=== PATIENT | male | born 1990 | race Caucasian/White ===

== ENCOUNTER 2022-03-23 10:00 | Outpatient (CLI) | payer BC, SELFPAY ==
--- NOTE | ~2022-03-23 | XR_ITS ---
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 Weight bearing anteroposterior, mortise, additional oblique and lateral view of the left ankle wer e obtained. 2.. Bearing dorsal plantar, two oblique and lateral views of the left foot were obtained. COMPARISON: None. FINDINGS: Amputated versus developmentally absent distal phalanx of the left third toe. Correlate with clinical history. Alignment of the left foot and ankle is normal. No fracture. Bone island at the posterior c alcaneus. Mild osteoarthritis at a few of the interphalangeal joints. Remaining joint spaces are rela tively preserved. No ankle joint effusion. The soft tissues are unremarkable. IMPRESSION: 1. Mild osteoarthritis at a few of the interphalangeal joints. Reviewed, dictated and finalized at location A. IMPRESSION: 1. Mild osteoarthritis at a few of the interphalangeal joints.
== END 2022-03-23 10:01 | disposition home or self-care (01) ==
PROVIDERS: Visit Provider Podiatrist Foot & Ankle Surgery
DX: M19.072 Primary osteoarthritis, left ankle and foot (principal)
CPT/HCPCS: 73610; 73630

== ENCOUNTER → 2023-06-05 07:32 | Outpatient (CLI) | payer BC, SELFPAY ==
--- NOTE | ~2023-06-05 | MR_ITS ---
EXAMINATION: MR ankle LT wo con DATE: 06/05/2023 08:24 INDICATION: Posterior tibial tendon dysfunction with left ankle tightness TECHNIQUE: Magnetic resonance imaging (MRI) of the left ankle was performed without intravenous contr ast. Sequences included sagittal, coronal, and axial proton-density weighted fast spin echo without a nd with fat saturation. COMPARISON: None. FINDINGS: Medial ankle ligaments: Deep and superficial deltoid ligaments as well as the spring ligament are normal. Lateral ankle ligaments: The anterior and posterior inferior tibiofibular ligaments are normal. The calcaneofibular and dining room captain ior talofibular ligaments are normal. Mild thickening and mild increased signal along the anterior ta lofibular ligament without significant surrounding edema consistent with mild scarring related to chr onic sprain. Tendons: Achilles tendon is normal. Small amount of increased fluid signal in the peroneal tendon sheath and i n the tibialis posterior tendon sheath consistent with mild tenosynovitis. The peroneus longus and br daniella tendons are normal. The tibialis posterior, flexor digitorum longus and flexor hallucis longus t endons are normal. The tibialis anterior and extensor hallucis longus and extensor digitorum longus t endons are normal. Plantar fascia: Plantar aponeurosis is normal. Bones/other: Bone alignment is normal. No fracture. There is prominent marrow edema along either side of a fibrous talocalcaneal coalition with irregular but nonunited cortical margins the medial process of the talus and the sustentaculum saeid. There is additional marrow edema along the lateral side of t he talus along side the traversing peroneus longus tendon, unclear whether this represents extension of the edema centered at the coalition pelvis related to the mild peroneal tenosynovitis. Bone island at the posterior tuberosity of the calcaneus. Remaining marrow signal is normal. Mild osteoarthritis at the second-fourth tarsal metatarsal joints Fluid: Physiologic amount fluid in the joint spaces. IMPRESSION: 1. 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 2. Mild scarring related to chronic sprain of the anterior talofibular ligament. 3. Mild tibialis posterior and peroneal tenosynovitis with normal appearing tendons. 4. Mild osteoarthritis at a few of the tarsal metatarsal joints. Reviewed, dictated and finalized at location A. IMPRESSION: 1. Prominent marrow edema along either side of a fibrous talocalcaneal coalitio n. 2. Mild scarring related to chronic sprain of the anterior talofibular ligament . 3. Mild tibialis posterior and peroneal tenosynovitis with normal appearing ten dons. 4. Mild osteoarthritis at a few of the tarsal metatarsal joints.
== END ==
PROVIDERS: PCP Podiatrist Foot & Ankle Surgery; Visit Provider Podiatrist Foot & Ankle Surgery
DX: M76.822 Posterior tibial tendinitis, left leg (principal); M79.89 Other specified soft tissue disorders; S93.492A Sprain of other ligament of left ankle, initial encounter; M19.072 Primary osteoarthritis, left ankle and foot
CPT/HCPCS: 73721

== ENCOUNTER 2023-09-17 00:56 | Day surgery (SDC) | payer BC, SELFPAY ==
[2023-09-13 08:14] VITALS: BMI 23.7
--- NOTE | 2023-09-13 08:29 | SUR.PREOP ---
Report to the Outpatient Waiting Room, entrance under the green pavilion located off [facility], at time 0600 on date 09/17/23. Planned Procedure Time: 0730. Time changes happen often and if your time is changed the preop area will call you the afternoon before. - You and your visitor will be asked to self-screen and do not enter if you have any COVID symptoms. - A mask is optional within the hospital at this time. Patients may have clear liquids (water, carbonated beverages, clear teas, apple juice) until 3 hours prior to surgery with a maximum of 20 ounces. - No food from midnight until time of surgery - Infants may have breast milk until 4 hours before surgery, infant formula 6 hours prior to surgery. - Children will be allowed to drink immediately following surgery. If applicable, please bring a bottle or sippy cup to assist with drinking. Juice, water, soda, and popsicles are readily available. For infants on formula, please bring formula the day of surgery. Pacifiers are allowed. Take the following medications with a SIP of water the morning of surgery: N/A DO NOT STOP ANY OF YOUR OTHER PRESCRIPTION MEDICATIONS PRIOR TO SURGERY ?EXCEPT THE FOLLOWING Medications to discontinue per physician N/A Date to take last dose N/A Please no make-up, nail omani, hairspray, perfume, deodorant, or body powder the day of surgery. No jewelry (including any body piercings) or valuables the day of surgery, leave them at home. Please take a shower or bath the night before, or the morning of, surgery with an antibacterial soap. Wear comfortable, loose fitting clothing. Children are encouraged to wear pajamas. - Jewelry must be removed prior to entering the operating room. Rings and piercings that are not removed may be cut off. - The hospital will not accept responsibility for valuables. - Please leave all valuables, including medications, at home the day of surgery. If you are going home after surgery, a licensed flatbed company driver must drive you home. - NO public transportation without another adult if you receive anesthesia. - We recommend that an adult stay with you for 24 hours following discharge. - We also recommend that you do not drive, make important decision, drink alcoholic beverages, or take any drugs that were not prescribed by your health care provider for at least 24 hours after your discharge time. For Pediatric surgeries, we recommend two adults accompany the child home. Follow any additional instructions given to you from your surgeon. If you or anyone in your household have experienced Covid symptoms in the past week, please notify your surgeon or the nurse liaison at the phone number below for possible testing. Telephone instructions given to KEVIN BRANTLEY and asked if any additional questions and then verbalized understanding. Patient advised to call surgeon office or pre surgery nurse liaison [phone] if any additional questions.
--- NOTE | 2023-09-16 14:07 | P.PNAN_ITS ---
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 Patient Data Age: 33 Gender: M Height: 1.88 m Weight: 83.91 kg Allergies Allergy/AdvReac Type Severity Reaction Status Date / Time No Known Allergies Allergy Verified 09/17/23 06:05 Home Medications Medication Instructions Recorded Confirmed Type oxycodone 5 mg tablet 5 mg PO Q6H PRN pain #40 tabs 09/14/23 Rx oxycodone 5 mg tablet 5 mg PO Q6H PRN pain #40 tabs 09/14/23 Rx oxycodone 5 mg tablet 5 mg PO Q6H PRN pain #40 tabs 09/14/23 Rx Patient hx anesthesia problems: none Family hx anesthesia problems: none Results Review: All pre-operative results and documents have been reviewed as part of the pre- operative evaluation. [facility] Past Medical History Medical History (Updated 09/16/23 @ 14:08 by Austyn Kim DO) GERD (gastroesophageal reflux disease) Social History Social History (Updated 09/17/23 @ 07:56 by Austyn Kim DO) Smoking status: Never smoker Alcohol use details: 2-4 beers/day, stopped 1 week ago Living arrangements: with family Spiritual care concerns: No Anes - Eval Final PreProcedure Day of Procedure 09/16/23 14:07 Patient weight: normal Heart: regular rate and rhythm Lungs: clear to auscultation Airway: Mallampati scale class II Neurological: alert and oriented Last oral intake: >/= 8 hours ASA classification: II Emergent: no Anesthetic plan: proceed Anesthesia type and monitoring: general LMA and standard monitoring Results Review: All pre-operative results and documents have been reviewed as part of the pre- operative evaluation. Informed Consent: The patient's anesthetic plan and its attendant risks and benefits were discussed with the patient/family/POA. Questions were solicited and answers provided to the satisfaction of the patient/family/POA.
[2023-09-17] VITALS (7 sets, daily range): BP systolic 105–117; BP diastolic 62–77; PULSE 75–88; RESP 16–18; TEMP 36.6; O2SAT 99–100
--- NOTE | ~2023-09-17 | XR_ITS ---
EXAMINATION: XR surgery orthopedic DATE: 09/17/2023 09:36 INDICATION: TECHNIQUE: 4 fluoroscopic images of the left foot were obtained during procedure performed by Dr. Kerwin krishna. Radiologist was not present for the imaging or procedure. The amount of fluoroscopy time used during this procedure was 0.5 minutes. COMPARISON: Radiographs dated 03/23/2022 and MRI dated 06/05/2023 FINDINGS: Initial images demonstrate surgical instrumentation and a pin projecting over the left calcaneus. Fin al images demonstrate a subtalar arthrodesis which is fixed with a cannulated compression screw. Alig nment appears to remain essentially anatomic. No fractures identified. Increased density in the regio n of the subtalar joint suggests placement of some bone graft material. IMPRESSION: 1. Fluoroscopy utilized during subtalar arthrodesis. See procedure note for further detail. Reviewed, dictated and finalized at location A. RN TO FACTORY CLERK IMPRESSION: 1. Fluoroscopy utilized during subtalar arthrodesis. See procedure note for fur ther detail.
[2023-09-17] MEDS: LACTATED RINGERS 1,000 ML 30 ML IV CONT ×2 (06:22→09:34)
--- NOTE | 2023-09-17 07:16 | WPDHPUPDATE1 ---
History and Physical Update Update Date/Time: 09/17/23 07:16 History and Physical has been reviewed, including an updated exam of the patient. There are NO changes in the patient's condition. Risks, benefits, and alternatives have been discussed and questions answered. Patient agrees to proceed with procedure.
[2023-09-17] MEDS: ceFAZolin 2 GM/D5W 50 ML 2 GM/50 ML BAG IVPB (07:34)
--- NOTE | 2023-09-17 07:56 | WPDANESPNB ---
Anes - Peripheral Nerve Block Date/Time: 09/17/23 07:56 I have discussed with the patient/family/POA the placement of a peripheral nerve block for post-operative pain management, including associated risks, benefits, complications, and side effects. Alternative methods of post-operative analgesia were detailed. Questions were solicited and answers provided to the satisfaction of the patient/family/POA. Time-Out: A pre-procedural Time-Out was completed immediately before starting the procedure and confirmed: Patient Identification, Site, Procedure, Patient Position and the Availability of Requisite Equipment. Clinical Indications: Acute post-operative pain management requested by the operative surgeon. Nerve Block Insertion Note Anes-nerve block: posterior fossa sciatic left and adductor canal left Patient position: supine (for adductor canal) and other (right lateral for popliteal) Skin prep: chlorhexidine Needle: 22 gauge, stimulating, insulated echogenic needle. Needle length: 80 mm Technique: nerve stimulation lost at (mA) (for popliteal lost at 0.2) and ultrasound Injectate: bupivacaine 0.5% with epi 5 mcg/ml (20 mL for popliteal, 10 mL for adductor canal (no epi)) Observations: tolerated well Complications: none Procedure start time:: 722 Procedure end time:: 727
--- NOTE | 2023-09-17 09:42 | W.PM.PROC2 ---
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 A pneumatic thigh tourniquet was placed about the patient's thigh. Following general anesthesia and a previous popliteal fossa block, the foot and ankle was then scrubbed, prepped, and draped in the usual aseptic manner. An Esmarch bandage was then used to exsanguinate the patient's foot and ankle and the pneumatic thigh tourniquet was then inflated to 350 mmHg. Surgery began in the following manner: Attention was directed to the lateral aspect of the hindfoot. An incision was made starting just distal to the lateral malleolus and extending towards the base of the 4th metatarsal. The incision was continued deep down through the subcutaneous tissues using sharp and blunt dissection. All bleeders were ligated and cauterized as necessary. At this point, the sinus tarsi was explored. A rongeur was used to resect all sinus tarsi contents and fat significant synovial tissue was debrided. The talocalcaneal ligament was cut. The extensor digitorum brevis muscle was detached form its origin to expose the lateral calcaneus. The dissection was continued deep down through the subcutaneous tissues using sharp and blunt dissection both anterior and posterior to the sinus tarsi area. Furthermore, the dissection was continued posteriorly where the peroneal tendon sheath was incised exposing the peroneal tendons posteriorly. The calcaneofibular ligament was left intact. Next, a joint distractor was positioned along the lateral aspect of the talus and lateral aspect of the calcaneus. Two large Steinmann pins were placed from lateral to medial across the lateral aspect of the talar body and lateral aspect of the calcaneal body. The joint distractor was then used to open the subtalar joint exposing the cartilage and subchondral bone. Curette was used to resect all cartilage from the subtalar joint, a large medial calcaneal facet colation was resected with a rongeur and curved osteotome and mallet. Next, a small osteotome and mallet were used to fenestrate the posterior facet, floor of the sinus tarsi as well as the anterior and medial facets of the subtalar joint. Next, a 2.0 mm drill bit was used to also fenestrate the subchondral bone. Finally, a curette was also used to make sure that there is no remaining cartilage noted. None was noted. The wound site was flushed with copious amounts of sterile saline. Next, 5cc of Upperco Allofiber and 3cc of augment bone graft were placed in the prepared subtalar joint and the distractor was removed. At this point, the subtalar joint was held in a rectus to slightly valgus position approximately 2 degrees. Next, a large guide wire for the StykPathwright7.0 Fixos headless screw system was used to hold the subtalar joint in the slight 2-degree valgus position and directed from the dorsal medial aspect of the neck of the talus to near the tuber of the calcaneus posterolaterally. A calcaneal axial view was used to make sure that the Steinmann pin was positioned within the constraints of the calcaneus and that there was good apposition of the subtalar joint. Next a Styker7.0 Fixos headless screw headless compression screw was driven from dorsal to plantar across the subtalar joint with excellent compression noted. Final fluoroscopy images showed good compression of the subtalar joint and excellent placement of the screw within the tuber of the calcaneus visualized i
== END 2023-09-17 11:25 | disposition home or self-care (01) ==
PROVIDERS: Visit Provider Podiatrist Foot & Ankle Surgery
PROC: (CPT 28750; principal; 2023-09-17 07:30)
DX: M89.8X7 Other specified disorders of bone, ankle and foot (principal); M19.072 Primary osteoarthritis, left ankle and foot; M76.822 Posterior tibial tendinitis, left leg; M24.475 Recurrent dislocation, left foot; G89.18 Other acute postprocedural pain
CPT/HCPCS: 28725; 64447; 64445; 99199; J0690; J1100; J2250; J2405; J2704; J3010; J7120

== ENCOUNTER 2023-10-14 10:10 | Outpatient (CLI) | payer BC, SELFPAY ==
--- NOTE | ~2023-10-14 | XR_ITS ---
Left foot Technique: AP, oblique, and lateral views were obtained. Clinical History: Pain Findings: No acute fracture or dislocation is seen. Osseous alignment is anatomic. Orthopedic screw t ransfixes the subtalar joint. Remaining joint spaces are preserved without erosive or degenerative ch zaire. Soft tissues are unremarkable. Impression: Status post apparent subtalar joint fusion. No other significant findings. Reviewed, dictated and finalized at location M. INUOUS IMPROVEMENT LEAD Impression: Status post apparent subtalar joint fusion. No other significant findings.
== END 2023-10-14 10:11 | disposition home or self-care (01) ==
PROVIDERS: Visit Provider Podiatrist Foot & Ankle Surgery
DX: S99.922A Unspecified injury of left foot, initial encounter (principal)
CPT/HCPCS: 73630